=== PATIENT | female | born 1960 | race Caucasian/White ===

== ENCOUNTER → 2018-03-14 | Outpatient (CLI) | payer OTHER ==
[~2018-03-14] MED LIST: ASPI-1471 PO; BUTA1CAP5 PO; CETI1TAB80 PO; ESTR0.62 PO; HYDR-385 PO; LEVO25TA61 PO; MIDRIN PO; MONT10TA PO; PROP80CA40 PO; RIZA10TA PO; ROSU20TA23 PO; SUMA100T32 PO; TOPI50TA92 PO
--- NOTE | 2018-03-14 20:53 | RADIOLOGY IMAGING REPORT ---
FACILITY: [facility] - [place] PATIENT NAME: Leelee Alejandro : 1960 MR: [id number] V: [id number] EXAM DATE: ORDERING PHYSICIAN: GABRIELLA MENDEZ TECHNOLOGIST: Location: [facility] [place] Patient: Leelee Alejandro : 1960 Visit/Account:[id number] Date of Sevice: 03/14/2018 DEXA Scan HISTORY: Screening, osteoporosis. COMPARISON: 2014, 2015 and 01/12/2017. LUMBAR SPINE: The bone mineral density (BMD) measured from L1-L4 correlates with a Z-score of 0 and a T-score of -1 .6 which is compatible with osteopenia as defined by the World Health Organization. The correspondin g risk of fracture in the lumbar spine is increased 3-4 times compared with a young adult reference p opulation. This value has increased by 8.1 % since the prior study. More than 5% change is consider ed significant. HIP: Bone mineral density (BMD) measured in the left total hip region correlates with a Z-score of -1.3 an d a T-score of -2.5 which is compatible with osteoporosis as defined by the World Health Organization . The corresponding risk of fracture in the hip is increased 6 times compared with a young adult ref erence population. This value in the total hip has increased by 2.7 % since the prior study. More th an 5% change is considered significant. Bone mineral density (BMD) measured in the left Femoral Neck region measures 0.689 g/cm2. IMPRESSION: 1. Lumbar spine: Compatible with osteopenia. There has been significant increase in the bone claims examiner al density since the previous exam. 2. Left Total Hip: Compatible with osteoporosis. There has been no significant change in the bone mineral density since the previous exam. 3. Left Femoral Neck: Bone Mineral Density is 0.689 g/cm2 The next DEXA scan of this patient should include the following sites: L1-L4 and left hip. FRAX? WHO Fracture Risk Assessment Tool link: <http://www.shef.ac.uk/FRAX/tool.jsp?locationValue=9> PLEASE NOTE: 1) The World Health Organization defines low BMD as follows: T-score Normal > -1 Osteopenia < -1 and > -2.5 Osteoporosis < -2.5 without fractures Established osteoporosis < -2.5 with fractures 2) In general, you may wish to consider: Diagnosis Treatment Follow-up DEXA Normal BMD Prevention 2-3 years Osteopenia Prevention/therapy 1-2 years Osteoporosis Therapy Yearly 3) Fracture risk estimated from the T-score is more accurate for vertebral fractures (often spontane ous) than for hip fractures. Report Dictated By: Milagro Vasquez MD at 03/14/2018 8:48 PM Report E-Signed By: Milagro Vasquez MD at 03/14/2018 8:50 PM WSN:[id number]
--- NOTE | 2018-03-15 14:58 | RADIOLOGY IMAGING REPORT ---
[facility] PATIENT NAME: CHAVA LANDERS : [id number] MR: [id number] V: [id number] EXAM DATE: [id number] ORDERING PHYSICIAN: GABRIELLA MENDEZ TECHNOLOGIST: Minerva Walker PROCEDURE:BILATERAL DIGITAL SCREENING MAMMOGRAM WITH CAD ASSISTED INTERPRETATION & 3D TOMOSYNTHESIS COMPARISON:prior mammogram 01/12/17. INDICATIONS:SCREENING FINDINGS: Breast tissue is extremely dense. There is no suspicious mass, calcification, or architectural distortion. DIAGNOSTIC CATEGORY 1--NEGATIVE. RECOMMENDATIONS: ROUTINE MAMMOGRAM AND CLINICAL EVALUATION. IMPRESSION: BIRADS 1: Negative. No mammographic evidence for malignancy. Dictated by: Marty Handley M.D. on 03/15/2018 at 11:52 Transcribed by: KIMBERLY on 03/15/2018 at 13:23 Approved by: Marty Handley M.D. on 03/15/2018 at 14:57 [facility]
== END ==
LOC: MAMO 06:58
PROVIDERS: ATTEND Nurse Practitioner Family
DX: Z13.820 Encounter for screening for osteoporosis (principal); Z12.31 Encounter for screening mammogram for malignant neoplasm of breast; M85.88 Other specified disorders of bone density and structure, other site; M81.0 Age-related osteoporosis without current pathological fracture
CPT/HCPCS: 77063; 77067; 77080

== ENCOUNTER 2019-04-01 13:33 | Emergency (ER) | payer OTHER ==
[~2019-04-01 13:33] MED LIST changes: -ROSU20TA23 PO; +ROSU20TA24 PO
[2019-04-01] MEDS ORDERED: NS(*) 0.9% 1000 ML BAG 1,000 ML IV ONE (13:56)
--- NOTE | 2019-04-01 13:56 | ER Report ---
History and Physical Time Seen By MD: 13:52 Hx. of Stated Complaint: PT A&OX3, PT REPORTS SHE "FEELS OUT OF IT, LIKE IN A DREAM", DIZZINESS AND PERIOD OF "BLANKNESS" HPI/ROS CHIEF COMPLAINT: Confusion, dizziness, short-term amnesia HISTORY OF PRESENT ILLNESS: Patient is a 59-year-old female here with complaints of dizziness, mild confusion, amnestic to the events of this morning. Patient reportedly went to work at the [employer], does not recall the events leading up to her coming in however she does recall being mildly confused. Denies prior history of CVA or TIA. Patient does have a history of hyperlipidemia, migraines. Denies current headache or blurry vision. Denies recent illnesses, fevers or chills REVIEW OF SYSTEMS: Constitutional: No fever, no chills. Eyes: No discharge. EOMI intact ENT: No sore throat. Cardiovascular: No chest pain, no palpitations. Respiratory: No cough, no shortness of breath. Gastrointestinal: No abdominal pain, no vomiting. Genitourinary: No hematuria. Musculoskeletal: No back pain. Skin: No rashes. Neurological: No headache.+ Short-term amnesia, dizziness Allergies: Coded Allergies: clindamycin (Verified Allergy, Severe, GI DISTRESS, OVERALL ACHINESS, 04/01/19) moxifloxacin (Verified Allergy, Severe, GI DISTRESS, HEADACHES, 04/01/19) Sulfa (Sulfonamide Antibiotics) (Verified Allergy, Mild, ITCHING, 04/01/19) Home Meds Reported Medications [Midrin] No Conflict Check, 2 TAB PO DAILY PRN for MIGRAINE 02/01/17 Estrogens, Conjugated 0.625 Mg Tab (PREMARIN 0.625 MG TAB) 0.625 Mg Tablet, 0.22 MG PO QDAY, TAB 02/01/17 Topiramate (TOPIRAMATE) 50 Mg Tablet, 50 MG PO BID 02/01/17 Aspirin (ASPIR 81) 81 Mg Tablet.dr, 81 MG PO QDAY, TAB 02/01/17 Sumatriptan Succinate (IMITREX) 100 Mg Tablet, 100 MG PO ONCE PRN for MIGRAINE 02/01/17 Hydrocodone Bit/Acetaminophen (HYDROCODON-ACETAMINOPHEN 5-325) 1 Each Tablet, 1 EACH PO Q4H PRN for MIGRAINE, TAB 02/01/17 Butalbit/Acetamin/Caff/Codeine (FIORICET-COD 65-580-96-30 CAP) 1 Each Capsule, 1 EACH PO Q4H, CAPSULE TAKE 1 CAPSULE BY MOUTH EVERY 4 HOURS 06/24/14 Propranolol Hcl (INDERAL LA) 80 Mg Cap.sa.24h, 80 MG PO Q24H 06/24/14 Rosuvastatin Calcium (CRESTOR) 20 Mg Tablet, 20 MG PO QDAY 06/24/14 Levothyroxine Sodium (LEVOTHYROXINE SODIUM) 25 Mcg Tablet, 25 MCG PO QDAY 06/24/14 Montelukast Sodium (SINGULAIR) 10 Mg Tablet, 1 TAB PO QDAY TAKE ONE TABLET BY MOUTH EVERY DAY 06/24/14 Cetirizine Hcl/Pseudoephedrine (ZYRTEC-D TABLET) 1 Each Tab.er.12h, 1 EACH PO QDAY, TAB TAKE 1 TABLET DAILY. 06/24/14 Hx Smoking: No Smoking Status: Never Smoker Hx Substance Use Disorder: No Hx Alcohol Use: Yes Constitutional Vital Sign - Last 24 Hours 04/01/19 04/01/19 04/01/19 04/01/19 13:41 13:51 14:00 14:03 Temp 98.3 Pulse 64 60 Resp 16 16 B/P (MAP) 128/88 128/80 (96) 132/81 (98) Pulse Ox 92 O2 Delivery Room Air 04/01/19 04/01/19 04/01/19 04/01/19 14:25 14:30 14:33 14:38 Pulse 57 55 Resp 16 15 B/P (MAP) 124/83 (97) 120/79 (93) Pulse Ox 100 04/01/19 04/01/19 15:30 15:38 Pulse 56 Resp 12 B/P (MAP) 123/86 (98) Pulse Ox 98 Physical Exam General Appearance: The patient is alert, has no immediate need for airway protection and no signs of toxicity. No acute distress. Eyes: Pupils equal and round no pallor or injection. ENT, Mouth: Mucous membranes are moist. Respiratory: There are no retractions, lungs are clear to auscultation. Cardiovascular: Regular rate and rhythm. Gastrointestinal: Abdomen is soft and non tender, no masses, bowel sounds normal. Neurological: Cranial nerves intact, no focal neurological deficits Skin: Warm and dry, no rashes. Musculoskeletal: Neck is supple non tender. Extremities are nontender, nonswollen and have full range of motion. DIFFERENTIAL DIAGNOSIS: After history and physical exam differential diagnosis was considered for altered mental status including but not limited to hypoglycemia, infectious process, electrolyte abnormality, head injury and intoxicants. Medical Decision Making Data Points Result Diagram: 04/01/19 1409 04/01/19 1409 Laboratory Hematology Test 04/01/19 14:09 White Blood Count 5.5 k/uL (4.5-11.0) Red Blood Count 4.54 M/uL (4.17-5.56) Hemoglobin 15.4 g/dL (12.0-16.0) Hematocrit 44.7 % (34.0-47.0) Mean Corpuscular Volume 98.4 fL (80.0-96.0) H Mean Corpuscular Hemoglobin 34.0 pg (26.0-33.0) H Mean Corpuscular Hemoglobin Concent 34.5 g/dL (32.0-36.0) Red Cell Distribution Width 12.9 % (11.5-14.5) Platelet Count 218 K/uL (150-450) Mean Platelet Volume 8.6 fL (7.2-11.1) Neutrophils (%) (Auto) 58.3 % (39.4-72.5) Lymphocytes (%) (Auto) 26.5 % (17.6-49.6) Monocytes (%) (Auto) 12.9 % (4.1-12.4) H Eosinophils (%) (Auto) 1.7 % (0.4-6.7) Basophils (%) (Auto) 0.6 % (0.3-1.4) Nucleated RBC Relative Count (auto) 0.1 /100WBC Neutrophils # (Auto) 3.2 K/uL (2.0-7.4) Lymphocytes # (Auto) 1.4 K/uL (1.3-3.6) Monocytes # (Auto) 0.7 K/uL (0.3-1.0) Eosinophils # (Auto) 0.1 K/uL (0.0-0.5) Basophils # (Auto) 0.0 K/uL (0.0-0.1) Nucleated RBC Absolute Count (auto) 0.00 K/uL Peripheral Blood Smear No Y/N Chemistry Test 04/01/19 14:09 Sodium Level 138 mmol/L (137-145) Potassium Level 3.7 mmol/L (3.5-5.0) Chloride Level 108 mmol/L (98-107) Carbon Dioxide Level 21 mmol/L (22-31) Blood Urea Nitrogen 30 mg/dl (7-18) Creatinine 1.10 mg/dl (0.52-1.04) Glomerular Filtration Rate Calc 50.8 Random Glucose 117 mg/dl (75-110) Calcium Level 9.3 mg/dl (8.4-10.2) Total Bilirubin 0.4 mg/dl (0.2-1.3) Aspartate Amino Transf (AST/SGOT) 25 U/L (0-35) Alanine Aminotransferase (ALT/SGPT) 32 U/L (0-56) Alkaline Phosphatase 111 U/L (0-126) Ammonia 17 UMOL/L (9-33) Troponin I < 0.012 ng/ml Total Protein 7.1 g/dl (6.3-8.2) Albumin 4.2 g/dl (3.5-5.0) Thyroid Stimulating Hormone (TSH) 1.71 uIU/ml (0.46-4.68) Serology Test 04/01/19 14:09 Toxicology Test 04/01/19 14:09 04/01/19 14:57 Serum Alcohol < 10 mg/dl Urine Opiates Screen Negative Urine Barbiturates Screen Positive Ur Tricyclic Antidepressants Screen Negative Urine Phencyclidine Screen Negative Urine Amphetamines Screen Negative Urine Benzodiazepines Screen Negative Urine Cocaine Screen Negative Urine Cannabinoids Screen Negative Urinalysis Test 04/01/19 14:57 Urine Color Straw Urine Clarity Clear Urine pH 6.0 pH (4.8-9.5) Urine Specific [place] 1.006 Urine Protein Negative mg/dL (NEGATIVE) Urine Glucose (UA) Negative mg/dL (NEGATIVE) Urine Ketones Negative mg/dL (NEGATIVE) Urine Blood Moderate (NEGATIVE) Urine Nitrite Negative (NEGATIVE) Urine Bilirubin Negative (NEGATIVE) Urine Urobilinogen Negative mg/dL (0.2-1.9) Urine Leukocyte Esterase Small (NEGATIVE) Urine RBC 2 /HPF (0-2/HPF) Urine WBC 42 /HPF (0-5/HPF) Urine Squamous Epithelial Cells Few /LPF (</=FEW) Urine Transitional Epithelial Cells Few /LPF (NONE-FEW) Urine Bacteria Moderate /HPF (NONE-FEW) Urine Mucus None /HPF (NONE-FEW) EKG/Imaging EKG Interpretation FACILITY: [facility] PATIENT NAME: LEELEE LANDERS : [id number] MR: [id number] V: [id number] EXAM DATE: ORDERING PHYSICIAN: JAZ STEELE TECHNOLOGIST: RIDGE Test Reason : MEMORY LOSS Blood Pressure : / mmHG Vent. Rate : 059 BPM Atrial Rate : 059 BPM P-R Int : 156 ms QRS Dur : 090 ms QT Int : 402 ms P-R-T Axes : 072 054 038 degrees QTc Int : 397 ms Sinus bradycardia Nonspecific T wave abnormality Abnormal ECG No previous ECGs available Referred By: IVETTE Confirmed By: Imaging PATIENT NAME: Leelee Landers : 1960 MR: [id number] V: [id number] EXAM DATE: ORDERING PHYSICIAN: JAZ STEELE TECHNOLOGIST: Location: [facility] Patient: Leelee Landers : 1960 Visit/Account:[id number] Date of Sevice: 04/01/[address] scan without contrast COMPARISONS: None ADDITIONAL PERTINENT HISTORY: Dizziness and short-term memory loss TECHNIQUE: Multiple axial images were obtained from the skull base to the vertex without IV contrast. One of the following dose optimization techniques was utilized in the performance of this exam: Automated exposure control; adjustment of the mA and/or kV according to the patient's size; or use of an iterative reconstruction technique. Specific details can be referenced in the facility's radiology CT exam operational policy. FINDINGS: Midline shift: Negative Ventricles: Negative Brain parenchyma: Negative Extra-axial spaces: Negative Intracranial vasculature: Negative Osseous structures: Negative Paranasal sinuses and mastoid air cells: Moderate sized mucus retention cyst involving the right maxillary sinus. Surrounding soft tissues and orbits: Negative IMPRESSION: 1. Normal head CT scan without contrast. 2. Underlying paranasal sinus disease. PATIENT NAME: Leelee Landers : 1960 MR: [id number] V: [id number] EXAM DATE: [id number] ORDERING PHYSICIAN: JAZ STEELE TECHNOLOGIST: Location: [facility] Patient: Leelee Landers : 1960 Visit/Account:[id number] Date of Sevnena: 04/01/2019 MR BRAIN/BRAIN STEM W/O CON Comparisons: Head CT scan dated earlier same day. Additional pertinent history: Altered mental status with confusion and amnesia TECHNIQUE: Multiplanar, multisequence brain MRI was performed without gadolinium contrast. FINDINGS: Sagittal midline structures and craniocervical junction: Negative. Midline shift: None. Ventricles: Negative. Brain parenchyma: Diffusion weighted imaging: Negative. Gradient sequence: Negative. T2 weighted FLAIR images: Scattered foci of abnormal increased T2 signal within the subcortical white matter of both cerebral hemispheres, nonspecific but likely representing small vessel ischemic change on a chronic basis. Extra-axial spaces: Negative. Dural venous sinuses and major arterial flow voids: Negative. Mastoid air cells and paranasal sinuses: Small mucous retention cyst involving the right maxillary sinus. Surrounding soft tissues and orbits: Negative. Impression: 1. Age related changes as described above. 2. No evidence of acute intracranial pathology. 3. Underlying paranasal sinus disease. ED Course/Re-evaluation ED Course Patient is a 59-year-old female here with complaints of mild retrograde amnesia from this morning, dizziness, lightheadedness. Patient is alert and oriented at this time however she does not recall events leading up to her coming in today. She did attend work this morning so it is unclear whether or not she was exposed to chemicals precipitating her current symptoms or if there is other organic causes or infectious etiologies associated. Patient was afebrile, hemodynamically stable at time of evaluation. CT imaging was initially completed to rule out intracranial bleed or cerebral edema and was found to be negative. Due to the patient's symptoms, decision was made to complete an MRI imaging of the brain to rule out CVA. MRI brain was found to be negative. EKG showed no acute arrhythmias, [place] was sent now for analysis. There is no leukocytosis, electrolytes were stable. Patient was repleted with normal saline bolus. She was found to have a urinalysis consistent with urinary tract infection, culture sent. Patient was given IV ceftriaxone 1 g. Outpatient prescription provided for Keflex for treatment of urinary tract infection. Patient also complained of mild headache, unclear whether or not she is experiencing a typical migraine precipitated by urinary tract infection however neurovascular exam is intact, cranial nerves intact. Patient was given Toradol, magnesium, Phenergan, Decadron for treatment of migraine. I discussed the findings with the patient and the patient's family and they voiced understanding, strict return precautions provided. Patient was hemodynamically stable at time of discharge. Close PCP follow-up recommended within 24 hours. Decision to Disposition Date: Apr 01, 2019 Decision to Disposition Time: 16:37 Depart Departure Latest Vital Signs Vital Signs Date Time Temp Pulse Resp B/P (MAP) Pulse Ox O2 Delivery O2 Flow Rate FiO2 04/01/19 15:38 56 12 98 04/01/19 15:30 123/86 (98) 04/01/19 13:41 98.3 Room Air Impression: Primary Impression: Amnesia Additional Impressions: Headache Dizziness Condition: Improved Disposition: HOME OR SELF-CARE Referrals: GABRIELLA MENDEZ (PCP) New Scripts Cephalexin Monohydrate (CEPHALEXIN) 500 Mg Cap 500 MG PO Q12H for 7 Days, #14 CAP 0 Refills Prov: JAZ STEELE DO 04/01/19 Patient Instructions: Acute Headache (ED), Dizziness (ED) Additional Instructions: Please drink plenty of water. Please return promptly if you develop worsening headache, visual changes, weakness, fevers or chills, nausea, vomiting. Please take Keflex one tablet twice daily for 7 days. Please follow-up with your family doctor in the next 24-48 hours for repeat evaluation Problem Qualifiers JAZ STEELE DO Apr 01, 2019 13:56
--- NOTE | 2019-04-01 14:17 | EKG ---
[place] [facility] [place] CHAVA LANDERS : [id number] MR: [id number] V: [id number] EXAM DATE: ORDERING PHYSICIAN: JAZ STEELE TECHNOLOGIST: RIDGE Test Reason : MEMORY LOSS Blood Pressure : / mmHG Vent. Rate : 059 BPM Atrial Rate : 059 BPM P-R Int : 156 ms QRS Dur : 090 ms QT Int : 402 ms P-R-T Axes : 072 054 038 degrees QTc Int : 397 ms Sinus bradycardia Nonspecific T wave abnormality Abnormal ECG No previous ECGs available Confirmed by Subhash Duncan ([id number]) on 04/02/2019 12:37:53 AM Referred By: IVETTE Confirmed By:Subhash Deluca
[2019-04-01 14:22] LABS: PLATELET COUNT, AUTOMATED 218 K/uL (150-450)
--- NOTE | 2019-04-01 14:56 | RADIOLOGY IMAGING REPORT ---
FACILITY: [facility] PATIENT NAME: Leelee Alejandro : 1960 MR: [id number] V: [id number] EXAM DATE: ORDERING PHYSICIAN: JAZ STEELE TECHNOLOGIST: Location: [facility] Patient: eLelee Alejandro : 1960 Visit/Account:[id number] Date of Sevice: 04/01/[address] scan without contrast COMPARISONS: None ADDITIONAL PERTINENT HISTORY: Dizziness and short-term memory loss TECHNIQUE: Multiple axial images were obtained from the skull base to the vertex without IV contrast . One of the following dose optimization techniques was utilized in the performance of this exam: Aut omated exposure control; adjustment of the mA and/or kV according to the patient's size; or use of an iterative reconstruction technique. Specific details can be referenced in the facility's radiology CT exam operational policy. FINDINGS: Midline shift: Negative Ventricles: Negative Brain parenchyma: Negative Extra-axial spaces: Negative Intracranial vasculature: Negative Osseous structures: Negative Paranasal sinuses and mastoid air cells: Moderate sized mucus retention cyst involving the right max illary sinus. Surrounding soft tissues and orbits: Negative IMPRESSION: 1. Normal head CT scan without contrast. 2. Underlying paranasal sinus disease. Report Dictated By: Davion Singh MD at 04/01/2019 2:47 PM Report E-Signed By: Davion Singh MD at 04/01/2019 2:49 PM WSN:[id number]
[2019-04-01] MEDS ORDERED: cefTRIAXone 1 GM VIAL IVP ONE (15:30)
--- NOTE | 2019-04-01 15:50 | RADIOLOGY IMAGING REPORT ---
FACILITY: [facility] [place] PATIENT NAME: Leelee Alejandro : 1960 MR: [id number] V: [id number] EXAM DATE: ORDERING PHYSICIAN: JAZ TSEELE TECHNOLOGIST: Location: [facility] Patient: Leelee Alejandro : 1960 Visit/Account:[id number] Date of Sevice: 04/01/2019 MR BRAIN/BRAIN STEM W/O CON Comparisons: Head CT scan dated earlier same day. Additional pertinent history: Altered mental status with confusion and amnesia TECHNIQUE: Multiplanar, multisequence brain MRI was performed without gadolinium contrast. FINDINGS: Sagittal midline structures and craniocervical junction: Negative. Midline shift: None. Ventricles: Negative. Brain parenchyma: Diffusion weighted imaging: Negative. Gradient sequence: Negative. T2 weighted FLAIR images: Scattered foci of abnormal increased T2 signal within the subcortical whi te matter of both cerebral hemispheres, nonspecific but likely representing small vessel ischemic fabio nge on a chronic basis. Extra-axial spaces: Negative. Dural venous sinuses and major arterial flow voids: Negative. Mastoid air cells and paranasal sinuses: Small mucous retention cyst involving the right maxillary si nus. Surrounding soft tissues and orbits: Negative. Impression: 1. Age related changes as described above. 2. No evidence of acute intracranial pathology. 3. Underlying paranasal sinus disease. Report Dictated By: Davion Singh MD at 04/01/2019 3:39 PM Report E-Signed By: Davion Singh MD at 04/01/2019 3:42 PM WSN:[id number]
[2019-04-01] MEDS ORDERED: KETOROLAC 30 MG/ML VIAL IVP ONE (16:00)
[2019-04-01] MEDS ORDERED: DEXAMETHASONE SOD PHOS 10MG/ML IVP ONE (16:00)
[2019-04-01] MEDS ORDERED: PROMETHAZINE 25 MG/ML 1 ML AMP IVP ONE (16:05)
[2019-04-01] MEDS ORDERED: MAGNESIUM SUL/D5W* 1 GM/100 ML 100 ML IVPB ONE (16:05)
[2019-04-01] MEDS ORDERED: CEPH500C24 PO (16:43)
[2019-04-01 17:00] VITALS: BP 128/79
== END 2019-04-01 17:26 | disposition home or self-care (01) ==
LOC: ER 14:04
DX: R41.3 Other amnesia (principal); R51 Headache; R42 Dizziness and giddiness
CPT/HCPCS: 70450; 70551; 80305; 80320; 81001; 82140; 82375; 82803; 84443; 84484; 85025; 86788; 86789; 87077; 87088; 87186; 93005; 96361; 96365; 96375; 99284; J0696; J1100; J1885; J2550; J3475; J7030; 82040; 82247; 82310; 82374; 82435; 82565; 82947; 84075; 84132; 84155; 84295; 84450; 84460; 84520